=== PATIENT | female | born 1990 | race Caucasian/White ===

== ENCOUNTER 2018-05-05 12:37 | Outpatient (CLI) | payer BC ==
[~2018-05-05] VITALS: Ht 165.1 cm; Wt 66.8 kg
[2018-05-05 12:48] VITALS: BP 109/72; PULSE 83; TEMP 98.3
[2018-05-05] MEDS ORDERED: PNV-SELECT1 TAB PO (12:54)
[2018-05-05] MEDS ORDERED: NIFEREX TABLET1 EACH PO (12:55)
[2018-05-05] MEDS ORDERED: CALCIUM CARBON650 M2 (12:56)
[2018-05-05 14:15] VITALS: BP 107/68; PULSE 85
== END 2018-05-05 14:25 | disposition home or self-care (01) ==
LOC: LDRO 12:37
DX: O62.9 Abnormality of forces of labor, unspecified (principal); Z3A.40 40 weeks gestation of pregnancy

== ENCOUNTER 2018-05-07 21:11 | Inpatient (IN) | payer BC ==
[~2018-05-07] VITALS: Ht 165.1 cm; Wt 66.8 kg
[~2018-05-07 21:11] MED LIST: CALCIUM CARBON650 M2; NIFEREX TABLET1 EACH PO; PNV-SELECT1 TAB PO
[2018-05-07 22:04] VITALS: BP 122/75; PULSE 86; TEMP 98.6
[2018-05-07] MEDS ORDERED: IRON 27 MG PO (22:15)
[2018-05-07 22:30] VITALS: BP 118/77; PULSE 85; TEMP 98.7
[2018-05-07 23:49] VITALS: BP 123/64; PULSE 77
[2018-05-08] VITALS (54 sets, daily range): BP systolic 103–151; BP diastolic 1–84; PULSE 74–129; TEMP 98.2–101.8
[2018-05-08 01:03] LABS: BASO # 0.1 (0.0-0.2); BASO % 0.5 % (0.0-2.0); EOS # 0.2 (0.0-0.7); EOS % 1.4 % (0-4.0); GRAN % 76.3 % (42.2-75.2); HEMOGLOBIN 12.4 g/dl (12.5-16.0); LYMPH # 1.9 (1.2-3.4); LYMPH % 14.5 % (20.0-51.0); MEAN CELL VOLUME 85 fl (80.0-100.0); MEAN CORPUSCULAR HEMOGLOBIN 30 pg (27.0-31.0); MEAN CORPUSCULAR HGB CONC 35 g/dl (33.0-37.0); MEAN PLATELET VOLUME 12.4 fl (7.4-10.4); MONO # 0.9 (0.1-0.6); MONO % 6.9 % (1.7-9.3); PLATELET COUNT 144 K/mm3 (130-400); RED BLOOD COUNT 4.21 M/mm3 (4.10-5.30); REDCELL DISTRIBUTION WIDTH-CV 12.7 % (11.5-14.5)
[2018-05-08 01:06] LABS: HEMATOCRIT 35.6 % (37.0-47.0)
[2018-05-09 01:00] VITALS: BP 135/63; PULSE 90
[2018-05-09 05:00] VITALS: BP 98/78; PULSE 80
[2018-05-09 07:20] VITALS: BP 96/66; PULSE 94; TEMP 97.7
[2018-05-09 07:32] LABS: MEAN CELL VOLUME 86 fl (80.0-100.0); MEAN CORPUSCULAR HGB CONC 35 g/dl (33.0-37.0); MEAN PLATELET VOLUME 11.5 fl (7.4-10.4); PLATELET COUNT 91 K/mm3 (130-400); RED BLOOD COUNT 3.25 M/mm3 (4.10-5.30); REDCELL DISTRIBUTION WIDTH-CV 12.9 % (11.5-14.5)
[2018-05-09 07:33] LABS: HEMATOCRIT 27.8 % (37.0-47.0); HEMOGLOBIN 9.6 g/dl (12.5-16.0); MEAN CORPUSCULAR HEMOGLOBIN 30 pg (27.0-31.0)
[2018-05-09 09:10] LABS: BAND 22 % (0-10); LYMPHOCYTE 4 % (20.0-51.0); NEUTROPHILS 65 % (42.0-75.2)
[2018-05-09 09:11] LABS: BURR CELLS 1+; PLATELET ESTIMATE DECREASED (NORMAL)
[2018-05-09 15:45] VITALS: BP 104/74; PULSE 91; TEMP 98.3
[2018-05-09 21:30] VITALS: BP 109/76; PULSE 79; TEMP 97.8
[2018-05-10 08:00] VITALS: BP 131/80; PULSE 99; TEMP 98.2
[2018-05-10] MEDS ORDERED: MOTRIN 800800 MG/TAB PO (08:07)
[2018-05-10] MEDS ORDERED: PERCOCET 325 MG1 TA2 PO (08:07)
== END 2018-05-10 10:00 | disposition home or self-care (01) | DRG 774 ==
LOC: LDRO 21:11 → LDR 21:30 → OB 21:31
PROVIDERS: Obstetrics & Gynecology
PROC: 10E0XZZ Delivery of Products of Conception, External Approach (ICD-10-PCS; principal; 2018-05-08)
PROC: 0KQM0ZZ Repair Perineum Muscle, Open Approach (ICD-10-PCS; 2018-05-08)
DX: O45.93 Premature separation of placenta, unspecified, third trimester (principal); Z3A.40 40 weeks gestation of pregnancy; Z37.0 Single live birth; O70.1 Second degree perineal laceration during delivery; O69.81X0 Labor and delivery complicated by cord around neck, without compression, not applicable or unspecified; O62.2 Other uterine inertia
CPT/HCPCS: J0290; J1580; J2210; J2405; J2590; J7120

== ENCOUNTER → 2018-05-18 | Outpatient (CLI) | payer BC ==
[~2018-05-18] MED LIST changes: +IRON 27 MG PO; +MOTRIN 800800 MG/TAB PO; +PERCOCET 325 MG1 TA2 PO
== END ==
LOC: LAC 10:54
DX: Z39.1 Encounter for care and examination of lactating mother (principal); Z71.89 Other specified counseling

== ENCOUNTER → 2018-05-25 | Outpatient (CLI) | payer BC | LOC: LAC 10:23 | DX: Z39.1 Encounter for care and examination of lactating mother (principal); Z71.89 Other specified counseling ==

== ENCOUNTER → 2018-06-01 | Outpatient (CLI) | payer BC | LOC: LAC 10:12 | DX: Z39.1 Encounter for care and examination of lactating mother (principal); Z71.89 Other specified counseling ==

== ENCOUNTER → 2018-06-08 | Outpatient (CLI) | payer BC | LOC: LAC 11:02 | DX: Z39.1 Encounter for care and examination of lactating mother (principal); Z71.89 Other specified counseling ==

== ENCOUNTER → 2018-06-29 | Outpatient (CLI) | payer OTHER | LOC: OLC 10:02 | DX: Z39.1 Encounter for care and examination of lactating mother (principal); Z71.89 Other specified counseling ==

== ENCOUNTER → 2020-10-15 | Outpatient (CLI) | payer OTHER ==
[~2020-10-15] MED LIST changes: +NATURAL IRON65 MG; +PREDNISONE20 MG PO; +PRENATAL TABLET PO
== END ==
LOC: ZCOL.LAB 08:00
DX: Z20.828 Contact with and (suspected) exposure to other viral communicable diseases (principal)

== ENCOUNTER 2020-10-18 07:23 | Inpatient (IN) | payer OTHER ==
[~2020-10-18] VITALS: Ht 165.1 cm; Wt 69.5 kg
[2020-10-18] VITALS (33 sets, daily range): BP systolic 98–136; BP diastolic 53–83; PULSE 81–139; TEMP 97.7–99.1
[~2020-10-18 07:23] MED LIST changes: -NATURAL IRON65 MG; -PREDNISONE20 MG PO; -PRENATAL TABLET PO
--- NOTE | 2020-10-18 07:30 | NUR ---
0730- PT. AMBULATORY TO THE UNIT WITH BY HER SIDE. ORIENTATED TO ROOM AND CHANGED INTO CLEAN GOWN. PATIENT IS A AT 39.5 HER FOR AN INDUCTION FOR DR. RUSSELL. PATIENT REPORTS GFM, NO LOF, NO BLEEDING AND OCCASIONAL CTX. 0733- EFM AND TOCO ON AND TRACING. VITALS TAKEN, CONSENTS SIGNED, IV STARTED, FLUIDS RUNNING. EXPLAINED PLAN OF CARE FOR THE DAY AND ANSWERED ANY QUESTIONS. PATIENT DENIES FURTHER NEEDS AT THIS TIME AND CALL LIGHT IS WITHIN REACH.
[2020-10-18] MEDS ORDERED: PRENATAL TABLET PO (08:02)
[2020-10-18] MEDS ORDERED: NATURAL IRON65 MG (08:03)
[2020-10-18] MEDS ORDERED: PREDNISONE20 MG PO (08:03)
[2020-10-18 09:03] LABS: BASO % 0.3 % (0.0-2.0); EOS # 0.1 (0.0-0.7); EOS % 1.2 % (0-4.0); GRAN # 7.2 (1.4-6.5); GRAN % 74.4 % (42.2-75.2); LYMPH # 1.6 (1.2-3.4); LYMPH % 16.4 % (20.0-51.0); MEAN CELL VOLUME 86 fl (80.0-100.0); MEAN CORPUSCULAR HEMOGLOBIN 29 pg (27.0-31.0); MEAN CORPUSCULAR HGB CONC 34 g/dl (33.0-37.0); MONO # 0.7 (0.1-0.6); MONO % 7.1 % (1.7-9.3); PLATELET COUNT 127 K/mm3 (130-400); REDCELL DISTRIBUTION WIDTH-CV 13.2 % (11.5-14.5)
[2020-10-18 09:09] LABS: HEMATOCRIT 35.4 % (37.0-47.0)
--- NOTE | 2020-10-18 09:13 | NUR ---
0913- THIS RN AND DR. RUSSELL TO BEDSIDE FOR SVE AND AROM. 0915- AROM WITH SMALL AMOUNT OF CLEAR FLUID NOTED. SVE WAS 3//-2. PATIENT TOLERATED WELL. PROVIDER DISCUSSED PLAN OF CARE. PATIENT DENIED FURTHER NEEDS OR QUESTIONS. CALL LIGHT WITHIN REACH.
--- NOTE | 2020-10-18 12:48 | NUR ---
1248- THIS RN TO BEDSIDE FOR SVE. PATIENT FEELING MORE PRESSURE AND URGE TO PUSH. SVE COMPLETE AND 0 STATION. CALLED YVONNE AND NOTIFIED HER. SHE ADVISED TO DO SOME PRACTICE PUSHING AND CALL WHEN READY. 1254- FIRST PRACTICE PUSH. THIS RN REMAINS AT BEDSIDE AND PUSHES INTERMITTENTLY WITH THE PATIENT. 1330- PATIENT REQUESTED TO TAKE A BREAK BECAUSE SHE WAS VERY NAUSEOUS AND FEELING "A LITTLE OUT OF IT." VITALS STABLE. HELPED PATIENT INTO ARLENE POSE AND EFM AND TOCO WERE TRACING. THIS RN STEPPED OUT TO GRAB SUPPLIES FOR DELIVERY WHEN THE TIME CAME. PATIENT HAD ASKED FOR A 15-20 MINUTES BREAK. 1350- THIS RN BACK TO BEDSIDE FOR MORE PRACTICE PUSHING. HELPED PATIENT GET INTO POSITION AND REMAINED AT BEDSIDE. 1353- FIRST PRACTICE PUSH AFTER BREAK. 1356- PATIENT PUSHED VERY WELL TO WHERE THIS RN ASKED HER TO STOP AND CALLED THE PROVIDER TO LET HER KNOW WE WERE READY FOR DELIVERY. THIS RN ALSO CALLED CHARGE NURSE AND NURSERY NURSE TO LET THEM KNOW THAT WE ARE READY FOR DELIVERY. 1402- RUSSELL TO BEDSIDE FOR DELIVERY. ROOM AND PATIENT PREPPED FOR DELIVERY. VILLA REMOVED WITH 300 URINE IN IT. 1407- OF VIABLE MALE . INFANT PLACED TO MOTHER ABDOMEN WHERE NURSERY NURSE ASSUMES CARE. PITOCIN TURNED OFF AT THIS TIME. 1410- OF PLACENTA. HEAVY AMOUNT OF BRIGHT RED BLOOD NOTED AND FUNDUS MASSAGED BY PROVIDER. THIS RN TOOK OVER MASSAGING FUNDUS WHICH WAS NOT FIRM AND STILL HAD FREE FLOW BLOOD. PITOCIN TURN ON AND RUNNING PER PROTOCOL AT 333ML/HR. VERBAL ORDER FOR METHERGINE GIVE FROM PROVIDER TO THIS RN. 1414- METHERGINE IM GIVING TO THE PATIENT. VERBAL ORDER FOR CYTOTEC 800MCG RECTALLY GIVEN TO THIS NURSE FROM PROVIDER. 1417- CYTOTEC 800MCG GIVEN RECTALLY BY PROVIDER TO HELP WITH BLEEDING. 2ND DEGREE REPAIR FINISHED AND FUNDUS WAS FIRM WITH MODERATE AMOUNT OF BRIGHT RED BLEEDING. PROVIDER NOTED A 500ML EBL. 1425- PATIENT AND ROOM CLEANED UP. NEW CHUX PAD, PERIPAD AND ICEPACK TO PERINEUM. VITALS TAKEN AND STABLE, FUNDUS FIRM AND D2 WITH MODERATE AMOUNT OF BLOOD AND SOME SMALL CLOTS NOTED.
[2020-10-19 00:01] VITALS: BP 105/69; PULSE 100; TEMP 98.2
[2020-10-19 04:00] VITALS: BP 110/59; PULSE 91; TEMP 98
--- NOTE | 2020-10-19 05:12 | NUR ---
PT HAS BEEN UNABLE TO SLEEP MUCH AT ALL- DISPITE TAKING TRAZADON. SHE FEELS ANXIOUS ABOUT NEW BABY. RN ASKS IF THERE IS ANYTHING IN PARTICULAR, SHE SAID NO. OFFERED WARM BLANKETS AND BREATHING TECHNIQUES. ENCOURAGED MOM TO SEND BABY TO [facility] SO SHE CAN TRY TO SLEEP FOR A COUPLE OF HOURS.
[2020-10-19 09:29] VITALS: BP 112/69; PULSE 83; TEMP 97.6
--- NOTE | 2020-10-19 10:19 | NUR ---
Initial visit; Parents thanked Nut Threader for offering congratulations for the of their son. Nut Threader offered God's blessings and thanked family for choosing [facility].
[2020-10-19] MEDS ORDERED: MOTRIN 800800 MG/TAB PO (10:43)
== END 2020-10-19 15:15 | disposition home or self-care (01) | DRG 806 ==
LOC: LDR 07:23 → OB 14:41
PROVIDERS: ADMIT Obstetrics & Gynecology
PROC: 10E0XZZ Delivery of Products of Conception, External Approach (ICD-10-PCS; principal; 2020-10-18)
PROC: 0KQM0ZZ Repair Perineum Muscle, Open Approach (ICD-10-PCS; 2020-10-18)
PROC: 10907ZC Drainage of Amniotic Fluid, Therapeutic from Products of Conception, Via Natural or Artificial Opening (ICD-10-PCS; 2020-10-18)
DX: O70.1 Second degree perineal laceration during delivery (principal); O99.12 Other diseases of the blood and blood-forming organs and certain disorders involving the immune mechanism complicating childbirth; Z37.0 Single live birth; O72.1 Other immediate postpartum hemorrhage; Z3A.39 39 weeks gestation of pregnancy
CPT/HCPCS: J2210; J2405; J2590; J7120

== ENCOUNTER → 2020-11-01 | Outpatient (CLI) | payer OTHER ==
[~2020-11-01] MED LIST changes: +NATURAL IRON65 MG; +PREDNISONE20 MG PO; +PRENATAL TABLET PO
--- NOTE | 2020-11-01 15:16 | NUR ---
Pt, Carly Mora, presents with two week old baby boy, Sivakumar Mora, for a weight check. Saravanan was born on [birth year] and weighed 7#14oz (3560 gms). On 10/22/20 pt reports his weight to be 7#8oz. Today Saravanan weighs 8#7.3oz for a gain of 15.3oz over 10 days. Pt will continue to breastfeed ad jennifer, quesitons invited and answered.
== END ==
LOC: LAC 12:00 → LAB.PHYSV 13:16 → LAC 13:38
DX: Z39.1 Encounter for care and examination of lactating mother (principal); Z71.89 Other specified counseling